=== PATIENT | male | born 1955 | race Caucasian/White ===

== ENCOUNTER 2017-06-20 11:00 | Emergency (ER) | payer BC ==
[~2017-06-20] VITALS: Ht 185.4 cm; Wt 128.3 kg
[~2017-06-20 11:00] MED LIST: CIALIS10 MG PO; FLEXERIL10 MG PO; GILENYA0.5 MG PO; MULTIPLE VITAM1 EACH PO; OMEGA-3 1,0001 EAC1 PO; OSTEO BI-FLEX1 EAC2 PO; ULTRAM50 MG PO; WELLBUTRIN SR150 MG PO; ZESTRIL10 MG PO
[2017-06-20] MEDS ORDERED: PERCOCET 5/31 TABLET PO (13:31)
[2017-06-20] MEDS ORDERED: STOOL SOFTENER250 MG PO (13:31)
[2017-06-20] MEDS ORDERED: NAPROSYN500 MG PO (13:31)
[2017-06-20] MEDS ORDERED: LIDODERM 5% P1 PATCH TD (13:31)
[2017-06-20 14:01] VITALS: BP 109/71
== END 2017-06-20 14:06 | disposition home or self-care (01) ==
LOC: EME 11:00
DX: R07.81 Pleurodynia (principal); I10 Essential (primary) hypertension; G35 Multiple sclerosis
CPT/HCPCS: 71100